=== PATIENT | female | born 1990 | race African-American/Black ===

== ENCOUNTER 2017-07-09 14:38 | Emergency (ER) | payer MEDICAID, OTHER ==
[~2017-07-09] VITALS: Ht 165.1 cm; Wt 81.8 kg
[2017-07-09] MEDS ORDERED: KETOROLAC TROMETHAMINE 60 MG/2 ML VIAL IM ONE (16:00)
[2017-07-09 16:29] VITALS: BP 140/90
== END 2017-07-09 16:35 | disposition home or self-care (01) ==
LOC: EMS 14:40
DX: S46.911A Strain of unspecified muscle, fascia and tendon at shoulder and upper arm level, right arm, initial encounter (principal); X58.XXXA Exposure to other specified factors, initial encounter; Y93.89 Activity, other specified; Y92.89 Other specified places as the place of occurrence of the external cause; Y99.8 Other external cause status
CPT/HCPCS: 96372; 99283; J1885

== ENCOUNTER 2018-09-21 16:35 | Emergency (ER) | payer OTHER ==
[~2018-09-21] VITALS: Ht 165.1 cm; Wt 90.5 kg
[2018-09-21 17:12] VITALS: BP 126/79
== END 2018-09-21 18:47 | disposition home or self-care (01) ==
LOC: EMS 16:36
DX: H66.93 Otitis media, unspecified, bilateral (principal); J02.9 Acute pharyngitis, unspecified
CPT/HCPCS: 87430

== ENCOUNTER 2018-11-22 02:00 | Emergency (ER) | payer OTHER ==
[~2018-11-22] VITALS: Ht 165.1 cm; Wt 90.9 kg
[2018-11-22 03:18] VITALS: BP 136/101
[2018-11-22] MEDS ORDERED: IBUPROFEN 800 MG TABLET PO ONE (04:00)
== END 2018-11-22 04:17 | disposition home or self-care (01) ==
LOC: EMS 02:01
DX: S43.422A Sprain of left rotator cuff capsule, initial encounter (principal); X50.9XXA Other and unspecified overexertion or strenuous movements or postures, initial encounter; Y93.89 Activity, other specified; Y92.89 Other specified places as the place of occurrence of the external cause; Y99.8 Other external cause status
CPT/HCPCS: 29105

== ENCOUNTER 2023-12-12 13:14 | Emergency (ER) | payer OTHER ==
[~2023-12-12] VITALS: Ht 165.1 cm; Wt 100.0 kg
[2023-12-12 13:16] VITALS: TEMP 98.7
[2023-12-12] MEDS: AMOX TR/POT CLAV 875 MG/125 MG TABLET PO ONE (14:49)
[2023-12-12] MEDS: IBUPROFEN 600 MG TABLET PO ONE (14:49)
[2023-12-12 14:53] VITALS: BP 190/102; PULSE 78; RESP 18
[2023-12-12] MEDS ORDERED: AMOX1TAB16 PO (15:06)
[2023-12-12] MEDS ORDERED: ACET-3385 PO (15:06)
[2023-12-12] MEDS ORDERED: IBUP-1492 PO (15:06)
== END 2023-12-12 15:14 | disposition home or self-care (01) ==
LOC: EMS 13:15
DX: K08.89 Other specified disorders of teeth and supporting structures (principal); F12.90 Cannabis use, unspecified, uncomplicated
CPT/HCPCS: 99283